=== PATIENT | female | born 1975 | race Caucasian/White ===

== ENCOUNTER 2021-09-02 16:09 | Emergency (ER) | payer MEDICAID, OTHER ==
[~2021-09-02] VITALS: Ht 165.1 cm; Wt 83.9 kg
[2021-09-02 16:18] VITALS: BP 129/99
[2021-09-02] MEDS ORDERED: ACETAMINOPHEN EXTRA STRENGTH 500 MG TAB PO ONE (16:45)
--- NOTE | 2021-09-02 16:52 | NUR ---
Blood for labwork drawn per phleb. Patient tolerated.
--- NOTE | 2021-09-02 16:59 | NUR ---
45 y/o female, c/o bilateral pelvic pain radiates to lower back for "past few months" worsened within the past 2 weeks, worsens with sitting. denies trauma, overexertion, fall, vaginal bleeding or discharge. denies nausea, vomiting, diarrhea. skin is pink/warm/dry. a&o x4 with even and steady gait. lungs clear bl, heart rate even and regular. pt denies dysuria, hematuria, urinary frequency or retention, or anyone sick in the household with the same symptoms. pt denies any fever, cp, sob, or cough at this time. pt states pain is 10/10 at this time, throbbing, sharp. patient positioned for comfort. hob elevated. bed down. ermd made aware of pt. pmh: thyroid ca, hysterectomy nka med: motrin
--- NOTE | 2021-09-02 17:04 | NUR ---
pt wheelchair assisted to ct scan at this time
[2021-09-02 17:05] LABS: BASOPHILS # (AUTO) 0.1 K/uL (0.00-0.22); BASOPHILS % (AUTO) 0.9 % (0.0-2.0); EOSINOPHILS # (AUTO) 0.1 K/uL (0-0.4); EOSINOPHILS % (AUTO) 1.6 % (0.0-4.0); HEMATOCRIT 42.1 % (36-48); HEMOGLOBIN 13.5 g/dL (12.0-16.0); LYMPHOCYTES # (AUTO) 2.9 K/uL (2.5-16.5); LYMPHOCYTES % (AUTO) 41.8 % (20.5-51.1); MEAN CORPUSCULAR HEMOGLOBIN 27 pg (27-31); MEAN CORPUSCULAR HGB CONC 32 g/dL (33-37); MEAN CORPUSCULAR VOLUME 82.6 fL (80-94); MONOCYTES # (AUTO) 0.4 K/uL (0.8-1.0); MONOCYTES % (AUTO) 5.9 % (1.7-9.3); NEUTROPHILS # (AUTO) 3.4 K/uL (1.8-7.7); NEUTROPHILS % (AUTO) 49.8 % (42.2-75.2); PLATELET COUNT (AUTO) 197 K/uL (140-450); RED CELL DISTRIBUTION WIDTH 14.9 % (11.6-13.7); WHITE BLOOD COUNT (AUTO) 6.9 K/uL (4.8-10.8)
[2021-09-02 17:48] LABS: ALBUMIN 4.1 g/dL (3.4-5.0); ANION GAP 14.8 (8-16); CARBON DIOXIDE 26.7 mmol/L (21-32); CREATININE 0.7 mg/dL (0.6-1.3); POTASSIUM 3.5 mmol/L (3.5-5.1); THYROID STIMULATING HORMONE 0.54 uIU/mL (0.34-3.74); TOTAL BILIRUBIN 0.7 mg/dL (0.0-1.0)
[2021-09-02] MEDS ORDERED: ACETAMINOPHEN EXTRA STRENGTH 500 MG TAB ONE (17:58)
[2021-09-02] MEDS ORDERED: KETOROLAC 15 MG/ML VIAL IM ONE (18:00)
[2021-09-02] MEDS ORDERED: IBUP-2213 PO (19:19)
--- NOTE | 2021-09-02 19:29 | NUR ---
GAVE REPORT TO RICARDO THAKKAR. TRANSFER OF CARE
--- NOTE | 2021-09-02 19:35 | NUR ---
CAYETANO AND FLU SWABS COLLECTED AND HANDED TO LAB
[2021-09-02 19:36] VITALS: BP 128/78
--- NOTE | 2021-09-02 19:36 | NUR ---
Patient discharged with v/s stable. Written and verbal after care instructions given and explained. Patient alert, oriented and verbalized understanding of instructions. Ambulatory with steady gait. All questions addressed prior to discharge. ID band removed. Patient advised to follow up with PMD. Rx of Ibuprofen given.
== END 2021-09-02 19:36 | disposition home or self-care (01) ==
LOC: MED 16:09
DX: S39.011A Strain of muscle, fascia and tendon of abdomen, initial encounter (principal); Z20.822 Contact with and (suspected) exposure to COVID-19; M54.9 Dorsalgia, unspecified; R59.0 Localized enlarged lymph nodes; F41.9 Anxiety disorder, unspecified; Z90.49 Acquired absence of other specified parts of digestive tract; Z90.710 Acquired absence of both cervix and uterus; Z85.850 Personal history of malignant neoplasm of thyroid; Z79.1 Long term (current) use of non-steroidal anti-inflammatories (NSAID); X58.XXXA Exposure to other specified factors, initial encounter; Y92.89 Other specified places as the place of occurrence of the external cause; Y93.89 Activity, other specified; Y99.8 Other external cause status
CPT/HCPCS: 36415; 72192; 80053; 83690; 84436; 84443; 85025; 87426; 87804; 96372; 99284; J1885